=== PATIENT | male | born 1975 | race Caucasian/White ===

== ENCOUNTER 2024-07-18 18:33 | Emergency (ER) | payer MEDICARE, MEDICAID ==
[2024-07-18] MEDS: MIDAZOLAM 100MG/100ML-0.9%NACL 100 MG in IV 1 EA IV SCH (19:20)
[2024-07-18] MEDS ORDERED: ceFAZolin 1GM VIAL As Ordered ONE (19:21)
[2024-07-18 19:30] VITALS: TEMP 95.9
[2024-07-18] MEDS: ceFAZolin SOD 2 GM in IV 1 EA IV ONE (19:35)
[2024-07-18 19:43] VITALS: BP 112/62; O2SAT 100
[2024-07-18] MEDS: SUCCINYLCHOLINE INJ 200MG/10ML VIAL IV STA (20:04)
[2024-07-18] MEDS: ETOMIDATE INJ 20MG/10ML VIAL IV STA (20:04)
== END 2024-07-18 19:44 | disposition short-term general hospital (02) ==
LOC: M ED 18:33 → EDBD 18:33 → M ED 19:44
DX: S72.321A Displaced transverse fracture of shaft of right femur, initial encounter for closed fracture (principal); S32.511A Fracture of superior rim of right pubis, initial encounter for closed fracture; S32.591A Other specified fracture of right pubis, initial encounter for closed fracture; S72.032A Displaced midcervical fracture of left femur, initial encounter for closed fracture; S50.311A Abrasion of right elbow, initial encounter; V03.10XA Pedestrian on foot injured in collision with car, pick-up truck or van in traffic accident, initial encounter; Y92.410 Unspecified street and highway as the place of occurrence of the external cause; Y93.01 Activity, walking, marching and hiking; Y99.9 Unspecified external cause status
CPT/HCPCS: 71045; 72190; 73080; 73501; 86850; 86900; 86901; 86920; 93041; 94760; 96374; 96375; 99291; 99292; J0690; J2251; P9016